=== PATIENT | male | born 1970 | race African-American/Black ===

== ENCOUNTER 2016-07-22 15:49 | Emergency (ER) | payer SELFPAY ==
[~2016-07-22] VITALS: Ht 167.6 cm; Wt 72.0 kg
[~2016-07-22 15:49] MED LIST: AMOXICILLIN500 MG PO; DENIES CURRENT MEDS; FLEXERIL PO; NAPROSYN500 MG PO; NO; PEPCID20 MG PO; ULTRAM50 M1 PO
[2016-07-22 17:01] LABS: INFLUENZA A NONE DETECTED (NONE DETECT); INFLUENZA B POSITIVE (NONE DETECT)
[2016-07-22] MEDS ORDERED: TAM75CAP PO (17:33)
[2016-07-22 18:42] VITALS: BP 131/87
== END 2016-07-22 18:42 | disposition home or self-care (01) | DRG 153 ==
LOC: ED 15:49
PROVIDERS: Emergency Medicine
DX: J11.1 Influenza due to unidentified influenza virus with other respiratory manifestations (principal); F17.210 Nicotine dependence, cigarettes, uncomplicated; R50.9 Fever, unspecified; R09.81 Nasal congestion; R05 Cough